=== PATIENT | male | born 1990 | race Caucasian/White ===

== ENCOUNTER 2023-10-30 22:05 | Emergency (ER) | payer BC ==
[2023-10-30] MEDS ORDERED: Naloxone 0.4 MG/ML SDV IVPUSH PRN (23:43)
[2023-10-30] MEDS: Ketorolac 30 MG/ML SDV IM ONE (23:56)
[2023-10-30] MEDS: HYDROmorphone 0.5 MG/0.5 ML Syringe IM ONE (23:57)
== END 2023-10-31 00:28 | disposition home or self-care (01) ==
LOC: JP.ED 22:05
DX: M54.50 Low back pain, unspecified (principal); F17.210 Nicotine dependence, cigarettes, uncomplicated; Z88.1 Allergy status to other antibiotic agents
CPT/HCPCS: 96372; 99283; J1170; J1885